=== PATIENT | male | born 1995 | race Two or more races ===

== ENCOUNTER 2018-09-18 15:14 | Observation (INO) | payer OTHER ==
[2018-09-18] MEDS ORDERED: NS 1,000 ML IV ONE ×2 (15:30→15:37)
--- NOTE | 2018-09-18 15:31 | EDPHY ---
H & P Stated Complaint: CP/SOB Time Seen by Provider: 09/18/18 15:31 HPI/ROS: HPI CHIEF COMPLAINT: Vomiting, chest pain, shortness of breath, abdominal pain HISTORY OF PRESENT ILLNESS: Patient is a 23-year-old male, otherwise healthy denies any significant medical history he presents emergency room with vomiting , epigastric abdominal pain, radiating to his chest with shortness of breath numbness and tingling all over. Patient states that he went for 17 mi run today, completed this and then drove home 45 min he did not have any chest pain or shortness of breath during this. He ate a bowl pasta when he got home and then shortly after he started developing pain in his epigastric region radiating to his chest. Associated shortness of breath. With hyperventilation. Nausea vomiting. He arrives to the emergency room is actively vomiting complaining of epigastric pain. Past Medical History: Denies significant medical history Past Surgical History: Denies significant surgical history Social History: Denies daily use of drugs alcohol tobacco. Family History: He is here from [place], in a training camp. ROS REVIEW OF SYSTEMS: 10 Systems were reviewed and negative with the exception of the elements mentioned in the history of present illness. Exam Constitutional triage nursing summary reviewed, vital signs reviewed, awake/ alert. Eyes normal conjunctivae and sclera, EOMI, PERRLA. HENT normal inspection, atraumatic, moist mucus membranes, no epistaxis, neck supple/ no meningismus, no raccoon eyes. Respiratory clear to auscultation bilaterally, normal breath sounds, no respiratory distress, no wheezing. Cardiovascular rate normal, regular rhythm, no murmur, no edema, distal pulses normal. Gastrointestinal soft, non-tender, no rebound, no guarding, normal bowel sounds, no distension, no pulsatile mass. Genitourinary no CVA tenderness. Musculoskeletal no midline vertebral tenderness, full range of motion, no calf swelling, no tenderness of extremities, no meningismus, good pulses, neurovascularly intact. Skin pink, warm, & dry, no rash, skin atraumatic. Neurologic awake, alert and oriented x 3, AAOx3, moves all 4 extremities equally, motor intact, sensory intact, CN II-XII intact, normal cerebellar, normal vision, normal speech. Psychiatric normal mood/affect. Heme/Lymph/Immune no lymphadenopathy. Differential Diagnosis: Differential diagnosis includes but is not limited to: ACS, atypical chest pain, pneumothorax, pneumonia, pulmonary embolism, aortic dissection, congestive heart failure, tumor, musculoskeletal pain, esophageal pain, GERD, peptic ulcer disease, pancreatitis Medical Decision Making: Plan for this patient IV establishment with IV fluid bolus, IV Phenergan for nausea vomiting 6.25 mg, monitor and storage bin tender, EKG, troponin , chest x-ray, electrolytes, lipase, LFTs re-evaluate. Re-evaluation: EKG interpretation by me on record in [facility] system. Impression time of EKG 1528, sinus rhythm rate of 78 prolonged VT interval 244, prolonged QT interval of 469, diffuse subtle ST elevation concerning for pericarditis. This could also be early re-pulp pattern as the patient is very young and very thin. I do not appreciate reciprocal changes of ST depression. Troponin 0.74. Given elevated troponin abnormal EKG I will consult Cardiology. Spoke with Cardiology Dr. Jose M rowland. Dr. Rowland to review the patient's EKG. He would like a echocardiogram, and proceed with CT scan with IV contrast for aortic dissection. Patient has blood pressure equal in both arms. ED x-ray chest one view negative for acute cardiopulmonary disease no evidence of widened mediastinum. No pneumothorax. 1636 patient re-evaluated resting comfortably at this time no acute distress. Dr. Jose M rowland at bedside evaluating the patient. He has reviewed his EKG. Echocardiogram being performed at this time. Given the patient's elevated troponin abnormal EKG will be admitted to the hospital. CT scan of the chest shows no evidence of aortic dissection called to me by Dr. Ramirez Plan for admission the hospital. Admit to Dr. Mena. Critical Care: Total Critical Care Time Spent Managing this Patient: 65 Minutes. This time was spent Exclusively with this patient. This Care was exclusive of procedures. The Organ System/life at risk was cardiac. This Patient was in Critical Condition because Chest pain in the setting of abnormal ekg, elevated troponin, vomiting. Source: Patient - Personal History Current Tetanus/Diphtheria Vaccine: Yes - Medical/Surgical History Hx Asthma: No Hx Chronic Respiratory Disease: No Hx Diabetes: No Hx Cardiac Disease: No Hx Renal Disease: No Hx Cirrhosis: No Hx Alcoholism: No Other PMH: Denies - Social History Smoking Status: Never smoked Constitutional: Initial Vital Signs Temperature (C) 36.9 C 09/18/18 15:16 Heart Rate 76 09/18/18 15:16 Respiratory Rate 18 09/18/18 15:16 Blood Pressure 136/86 H 09/18/18 15:16 O2 Sat (%) 99 09/18/18 15:16 O2 Delivery Mode Room Air Allergies/Adverse Reactions: No Known Allergies Allergy (Verified 09/18/18 16:17) Home Medications: Medication Instructions Recorded NK [No Known Home Meds] 09/18/18 Medical Decision Making - Data Points Laboratory Results: Laboratory Results 09/18/18 15:37 09/18/18 15:37 Medications Given: Discontinued Medications Sodium Chloride (Ns) 1,000 mls @ 0 mls/hr IV EDNOW ONE; Wide Open PRN Reason: Protocol Stop: 09/18/18 15:31 Last Admin: 09/18/18 15:40 Dose: 1,000 mls Sodium Chloride (Ns) 1,000 mls @ 0 mls/hr IV ONCE ONE PRN Reason: Wide Open Stop: 09/18/18 15:38 Last Admin: 09/18/18 16:00 Dose: 1,000 mls Promethazine HCl (Phenergan) 6.25 mg IVP EDNOW ONE Stop: 09/18/18 15:37 Last Admin: 09/18/18 15:38 Dose: 6.25 mg Point of Care Test Results: Chemistry 09/18/18 15:39 POC Troponin I 0.74 ng/mL H ng/mL (0.00-0.08) Departure - Departure Disposition: [facility] Inpatient Acute Clinical Impression: Elevated troponin, Abnormal EKG Chest pain Qualifiers: Chest pain type: unspecified Qualified Code(s): R07.9 - Chest pain, unspecified Vomiting Qualifiers: Vomiting type: unspecified Vomiting Intractability: intractable Nausea presence : with nausea Qualified Code(s): R11.2 - Nausea with vomiting, unspecified Condition: Fair
[2018-09-18] MEDS ORDERED: PROMETHAZINE HCL 25 MG/ML INJ ONE (15:34)
[2018-09-18] MEDS ORDERED: PROMETHAZINE HCL 25 MG/ML INJ IVP ONE (15:36)
[2018-09-18 15:50] LABS: PLATELET COUNT 257 10^3/uL (150-400)
[2018-09-18] MEDS ORDERED: IOPAMIDOL (ISOVUE 370) 100 ML BTL IV ONE (16:06)
[2018-09-18 16:46] LABS: CREATINE KINASE 404 IU/L (0-224)
--- NOTE | 2018-09-18 17:36 | ECHO ---
[email or web address] [address] [address] Main: [phone] Echocardiography Examination Transthoracic Name: SADAF MILLER MR#: [id number] Study Date: 09/18/2018 Study Time: 04:30 PM Date of : 1995 Age: 23 year(s) Height: 173 cm (68.11 in.) Weight: 61 kg (134.48 lb.) BSA: 1.73 m2 Gender: Male Examination: Echo Contrast: Image Quality: Adequate Rhythm: Heart Rate: BP: 134 mmHg/76 mmHg Indication: Chest Pain Procedure Staff Referring Physician: Pipe Joints Supervisor: Reading Physician: Vinayak Rowland MD Requesting Provider: Ordering Physician: Willis Antunez Indication: Chest Pain Measurements Chambers AV/MV Label Value Normal Value Label Value Normal Value LVDd, 2D 5.5 cm (4.2cm - 5.9cm) AV PGmax 7 mmHg LVDs, 2D 3.5 cm (2.1cm - 4cm) AV PGmean 3 mmHg IVSd, 2D 0.6 cm (0.6cm - 1.1cm) AV Vmax 1.35 m/s LVPWd, 2D 0.7 cm (0.6cm - 1cm) MV E Vmax 0.83 m/s LVEF, BP 64 % (55% - 70%) MV A Vmax 0.48 m/s LVEF, 2D 66 % (54% - 74%) MV E/A 1.73 LADs, 2D 3.6 cm (3cm - 4cm) MV E/E' lateral 6.5 Additional Vessels MV E/E' septal 7.7 (0.6 - 2.6) Label Value Normal Value MV E' septal 0.11 m/s AoRoot, MM 3.2 cm (2.2cm - 3.7cm) MV E' lateral 0.13 m/s IVC 2.8 cm (1.2cm - 2.3cm) MV E/E' mean 6.92 MV E' mean 0.12 m/s TV/PV Label Value Normal Value RA Pressure 5 mmHg RVSP 25 mmHg TR Pmax 20 mmHg TR Vmax 2.24 m/s Patient: SADAF MILLER Study Date: 09/18/2018 Page 1 of 2 04:30 PM Conclusions Normal left ventricular size and function. LVEF estimated at 60-65% with normal left ventricular free wall thickness and no regional wall motion abnormalities. No pericardial effusion. Diastolic parameters within normal limits. Mild biatrial enlargement. Intact interatrial septum. Normal appearing valvular structures. Trivial mitral regurgitation. Mild tricuspid regurgitation. Normal estimated RVSP. Normal ascending aortic size. Findings Left Ventricle: Left ventricle is normal in size. Normal global systolic left ventricular function. The ejection fraction, measured by Simpsons method, is 64 %. EF range is estimated at 60 % - 65 %. Left ventricle wall thickness is normal. There are no regional wall motion abnormalities. Left ventricular diastolic function parameters are normal. IVS: The septum is intact. Right Ventricle: Normal size right ventricle. Right ventricular wall thickness is normal. Right ventricular systolic function is normal. Left Atrium: The left atrium is mildly dilated. IAS: Normal appearing atrial septum. Right Atrium: The right atrium is mildly dilated. Mitral Valve: Normal . Trivial mitral regurgitation. No mitral valve stenosis. Aortic Valve: Aortic leaflets exhibit normal cuspal separation. No aortic valve regurgitation. There is no aortic stenosis. The aortic valve is trileaflet. Tricuspid Valve: Tricuspid valve leaflets are normal in appearance and function. Mild tricuspid regurgitation. No tricuspid valve stenosis. Right Ventricular systolic pressure is measured at 25 mmHg. Pulmonary artery pressure normal. Pulmonic Valve: Pulmonic leaflets exhibit normal cuspal separation. No pulmonic valve regurgitation is evident. There is no pulmonic valve stenosis. Aorta: The aorta is normal. The aortic root size in M-mode measures 3.2 cm. Aorta Measurements AoRoot, MM is 3.2 cm. IVC: The inferior vena cava is normal in size and course. Pericardium: No pericardial effusion. No pleural effusion present. Exam Details Procedure Ordered: Echo Procedure Status: Routine study Image Quality: Adequate Facility Location: Cardiac Echo 1 (No Signature Object) Patient: SADAF MILLER Study Date: 09/18/2018 Page 2 of 2 04:30 PM [id number]
[2018-09-18] MEDS ORDERED: ACETAMINOPHEN 325 MG TAB PO PRN (18:44)
[2018-09-18] MEDS ORDERED: ONDANSETRON 4 MG/2 ML VIAL IVP PRN (18:44)
[2018-09-18] MEDS ORDERED: NS 1,000 ML IV SCH (18:45)
[2018-09-18] MEDS ORDERED: PROMETHAZINE HCL 25 MG/ML INJ IVP PRN (18:46)
--- NOTE | 2018-09-18 19:22 | GHP ---
[f rep st] HISTORY AND PHYSICAL DATE OF ADMISSION: 09/18/2018 CHIEF COMPLAINT: Chest pain. 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 He ran 17 miles today. This is not unusual for cadence lagos to run that distance. He has been in [place] for 10 days, had a little bit of altitude awareness the first couple days he was here, but feels fully acclimated and has been running at his usual capac ity. He is here to train at altitude. 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 After his run today, he drove home, cooked a big bowl of spaghetti carbonara, and felt fine. While cadence alcantar was eating the pasta, he suddenly developed a chest pain to lower epigastric pain that was very sev ere 8/10. It radiated to his back. He described as an intense pain feeling like he was winded. He had some numbness and tingling that went all the way down his legs to his arms as well as a back pain that shot up to his head. He felt a little short of breath. Chest pain lasted about 2-1/2 hours. He had some nausea and vomiting. He actually felt better after he vomited. PAST MEDICAL HISTORY: Negative. MEDICATIONS: None. ALLERGIES: No known drug allergies. SOCIAL HISTORY: No smoking. Rare alcohol. He is here in [place] for 3 weeks staying at a training camp with other athletes. REVIEW OF SYSTEMS: Complete review of systems obtained. Review of systems negative regarding consti tutional, HEENT, GI, pulmonary, cardiovascular, , hematology, skin, musculoskeletal, endocrine, psy ch, except for positives and negatives as in HPI. FAMILY HISTORY: There are strokes on his Mom's side of the family. PHYSICAL EXAMINATION: GENERAL: Well-developed, well-nourished male, in no distress. VITAL SIGNS: Temperature 36.7, pulse 59, blood pressure 118/71, saturating 95% on room air. EYES: Normal conjunc tivae, pupils react to light. ENT: Normal ears, nose. Hearing intact. Normal teeth. Oropharynx: Moist. NECK: Trachea midline. No thyromegaly. CHEST: Clear to auscultation bilaterally. CARDIO VASCULAR: Regular rhythm. No murmur. EXTREMITIES: No lower extremity edema. ABDOMEN: Soft, nont patsy. No hepatomegaly. SKIN: Warm, dry, intact. No rash. MUSCULOSKELETAL: No cyanosis or clubb ing. Strength 5/5 upper and lower extremities. NEUROLOGIC: Cranial nerves intact. Normal sensatio n light touch. PSYCHIATRIC: Alert and oriented x3. Normal affect. Normal judgment and insight. No rmal memory. LABORATORY DATA: White count 9.89, hematocrit 40.9, platelets 257. Sodium 138, potassium 4.0, chlor song 105, bicarb 18, BUN 22, creatinine 1.0, glucose 105. Troponin 0.79. Total bilirubin 1.6. CPK i s 404. D-dimer is negative. IMAGING: CT angiogram of the chest is negative. Echocardiogram shows normal EF. Normal wall thickness. This case was discussed with Dr. Herrera. He consulted Dr. Rowland who saw the patient personally in [facility] emergency room. He would like patient admitted for observation and serial troponins. ASSESSMENT/PLAN: 1. Demand ischemia due to extreme exercise. I think it is much less likely that he is having a non- ST-elevation myocardial infarction. His echo is reassuring. We will admit to observation and follow serial troponins. Cardiology is following. Per Dr. Rowland, he doubts pericarditis. CT of the chest was negative. 2. Nausea and vomiting. Will treat symptomatically with IV Zofran and/or IV Phenergan. 3. CPK elevation. This is only mildly elevated and clearly from his intense exercise. I will hydra te him. CODE STATUS: Full. ADMISSION STATUS: Will admit to observation as I anticipate he will be able to go home tomorrow if h is troponins remain flat. DEEP VENOUS THROMBOSIS PROPHYLAXIS: He is low risk. /[id number]/MODL
--- NOTE | 2018-09-19 04:12 | GCON ---
[f rep st] CONSULTATION EMERGENCY DEPARTMENT CONSULTATION DATE OF CONSULTATION: 09/18/2018 INDICATIONS: Chest pain. HISTORY OF PRESENT ILLNESS: The patient is a 23-year-old, otherwise very healthy male who is visitin g the local area here from [place] to train in long-distance running. 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 He typically will run between 60 and 80 miles weekly. He has been in the local area here for about 10 days traveling from [facility]. He has been running every day since then. He is here with his education trainer. Earlier today, went for about a 17 mile run. During his run, he states that he felt a little bit ill . On several occasions. He had to stop because he felt nauseated. Apparently at 1 point, he did do uble over. He did manage to finish his run at which point he felt better. He traveled home, made so me pasta and began to eat. At that point, he states he felt the abrupt onset of epigastric discomfor t. This felt as if someone had "punched" him in the chest and upper abdomen. He felt a little bit o f pain radiating to his back. With this, he became nauseated and apparently started to hyperventilat e. He felt that his symptoms were a little bit worse with deep inspiration. As a result, he was bro ught to the emergency department here. On arrival here, he was having active discomfort. He did end up having at least 1 large episode of emesis. He was treated with Phenergan and had improvement in his symptoms. At the time that I was talking to him, he felt back to his baseline. He has not had any recent fever, chills or sweats. He has not had any previous episodes of chest dis comfort. He notes no palpitations or racing heart rate. He has not had any recent unusual meals. H e notes no diarrhea. On arrival here, he was hemodynamically stable. He had no oxygen requirement. His initial ECG demon strated sinus rhythm with a first-degree AV block measuring 240 milliseconds. He had increased volta ges throughout the precordium as well as tall T-waves. He had no ST elevations. There were no T-wav e inversions. Subsequently, he has had a bedside echocardiogram. There is a full and separately detailed report on the chart. That echocardiogram was essentially normal. There was borderline right ventricular and right atrial dilatation. There was no pericardial effusion or wall motion abnormalities. Additional ly, he underwent a chest CTA. There was no evidence of dissection or pulmonary embolism nor was ther e any indication of pericardial effusion or pulmonary pathology. His point of care troponin here was elevated at 0.74. His N terminal proBNP was 178. CPK was 404 wi th an MB of 8.5 yielding a negative MB fraction. BUN was 22 with a creatinine 1.0. Sodium 138, pota ssium 4.0, chloride 105, CO2 18, anion gap 15, BUN 22, and creatinine 1.0. Glucose was 105. Calcium 10.4. Magnesium 1.9. Liver function tests were normal. Albumin 5.3, total protein 8.4, lipase 122 . D-dimer 0.29. White blood cell count 9.89, hematocrit 40.9, and platelet count 257,000. PAST MEDICAL HISTORY: Otherwise healthy. PAST SURGICAL HISTORY: He has not had any significant surgeries. SOCIAL HISTORY: He drinks very rarely. He uses no tobacco products or drugs. As stated, he is here from [facility] to train in long-distance running. FAMILY HISTORY: Negative for premature atherosclerosis. REVIEW OF SYSTEMS: A full 10-point review of systems was performed and is otherwise negative. PHYSICAL EXAMINATION: VITAL SIGNS: Blood pressure 118/71, pulse is in the 50s, room air saturations are 95%. He is afebrile. GENERAL: Reveals a healthy, appearing male in no acute distre ss. HEENT: Normocephalic atraumatic. He has anicteric sclerae. His oropharynx unremarkable. Lorenzo tids 2+ bilaterally with no bruits. He has no JVD, adenopathy or thyromegaly. RESPIRATORY: He is b reathing easily, resting comfortably, using no accessory muscles. On auscultation, he has clear lung nicole bilaterally. CARDIAC: Precordial inspection unremarkable. PMI is nondisplaced. On auscult ation, he has a regular rate and rhythm without murmurs, gallops, or rubs. ABDOMEN: Soft, nontender . He has no masses or hepatosplenomegaly. He has a nonpalpable aorta. EXTREMITIES: Warm, dry, and well perfused. He has no lower extremity edema. VASCULATURE: Has 2+ radial, dorsal, pedal, and po sterior tibial pulses and a nonpalpable aorta. NEUROLOGIC: He is alert and oriented x3. Moves all 4 limbs spontaneously. IMPRESSION: The patient is 23 years old who and presents to the emergency department today after run john about 17 miles with symptoms of epigastric and chest discomfort associated with nausea and emesi s. His initial point of care troponin was slightly elevated at 0.74 and his ECG was mildly abnormal indicating first-degree atrioventricular block, tall peaked T-waves and increased voltages. At the p resent time, there is no indication of an acute coronary syndrome. He does not have ECG changes that suggest infarction or ischemia, and his echocardiogram demonstrates normal homogeneous contractility of all cardiac segments. His nausea and chest discomfort have subsequently resolved. He does, alston marino, have a slight elevation in his troponin. I think this may very well reflect the fact that he re cently ran 17 miles. I think this may simply represent right ventricular strain which is typically s een in individuals that run marathons. Other possibilities on the differential diagnosis includes pe ricarditis which I think is unlikely. Based on his workup thus far, there is no evidence of dissecti on nor is there any evidence of pulmonary embolism. Fortunately, his pain is resolved after administ ration of Phenergan and he is currently comfortable. RECOMMENDATIONS: 1. I would like him to be admitted to the hospital overnight. 2. I think he can be orally hydrated throughout the evening. 3. I would like to trend his cardiac enzymes throughout the night. 4. We will plan to repeat his ECG in the morning. 5. Depending on his clinical course overnight, I think he can likely be discharged home in the [facility]. We may consider performing a coronary CTA to assess for anomalous coronary arteries. 6. We will follow along with you. /[id number]/MODL
--- NOTE | 2018-09-19 08:32 | CPEKG ---
Test Reason : OPEN Blood Pressure : / mmHG Vent. Rate : 078 BPM Atrial Rate : 077 BPM P-R Int : 244 ms QRS Dur : 100 ms QT Int : 469 ms P-R-T Axes : -13 039 059 degrees QTc Int : 535 ms Sinus rhythm FRIST DEGREE AV BLOCK Prolonged QT interval Confirmed by Nico Patel ([id number]) on 09/19/2018 8:32:23 AM Referred By: Dede Mena Confirmed By:Nico Patel
[2018-09-19] MEDS ORDERED: IOPAMIDOL (ISOVUE 370) 100 ML BTL IV ONE (09:40)
[2018-09-19 11:46] VITALS: BP 123/66
--- NOTE | 2018-09-19 14:25 | ASMTCMCOM ---
CM Note CM Note Notes: Pts case discussed in tx rounds. Pt is a 23 y/o man admitted for chest pain and positive trops. Pt will most likely d/c independent when medically stable. Pt is currently listed under self pay. Financial counseling stopped by to see pt. FC will defer to [facility] if it is warranted. CM available for changes. Plan: Independent Date Signed: 09/19/2018 02:25 PM Electronically Signed By:KARENA Gottlieb
--- NOTE | 2018-09-19 14:36 | PDCARPN ---
Cardiology Progress Note Assessment/Plan: Assessment: 1. Epigastric discomfort (resolved) 2. Mild troponin elevation (trending down) I think Mr. Krueger's symptoms are due to GI discomfort after running 17 miles and eating a banana, power bar and pasta. [place] and arrived in [place] September 10, 2018. I think symptoms exacerbated by the altitude as well. Cardiac work up has been unremarkable as outlined above. Plan: -stable for discharge today -recommend adequate hydration -OK to run gradually tomorrow if he feels OK -Discussed potential for arrhythmias in athletes, particularly in the setting of atrial enalargement. 09/19/18 14:36 Subjective: Mr. Krueger is feeling well. No complaints of chest pain. No sob, nausea or vomiting. Tele demonstrates normal sinus rhythm with occasional PAC. Echo from yesterday demonstrates normal left and right ventricular function. Mild left/ right atrial dimensions. Coronary CTA today demonstrated normal coronary arteries with normal anatomic origins. No coronary calcium and no evidence of CAD. Normal LV function. Troponin continues to trend down from 0.98 to 0.59 to 0.322. BP is normal. Reviewed/Discussed With: hospitalist Objective: Vital Signs (8 Hrs) Temp Pulse Resp BP Pulse Ox 09/19/18 11:46 36.6 C 51 L 18 123/66 H 95 09/19/18 07:35 36.8 C 38 L 18 106/50 L 96 Intake/Output (24 Hrs) 09/18/18 09/19/18 09/20/18 05:59 05:59 05:59 Intake Total 500 Balance 500 Intake: Oral (ml) 500 Other: Weight 61 kg Number of Voids Toilet 1 Result Diagrams: 09/18/18 15:37 09/19/18 03:00 Cardiac Labs: Cardiac Lab Results (72 Hrs) 09/19/18 09/18/18 09/18/18 03:00 22:05 19:18 Troponin I 0.322 H 0.590 H 0.980 H - Physical Exam Constitutional: healthy appearing Neurologic: AAOx3, CN II-XII grossly intact Psychiatric: cooperative, interactive, following commands ICD10 Worksheet Patient Problems: Problems Problem Status Onset Abnormal EKG Acute Chest pain Acute Elevated troponin Acute Vomiting Acute
--- NOTE | 2018-09-19 14:56 | PDDCSUM ---
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 This is his 1st time training at altitude in [place]. Yesterday he ran 17 miles which is a typical distance for him during his training. This went fine without any symptoms. Afterward while he was eating dinner he developed sudden onset of severe epigastric cramps also felt in the mid back and the very low substernal area. There is nausea and vomiting. There were no palpitations, no lightheadedness, no fainting, no fever symptoms, no diarrhea. He presented here to the ER. His symptoms have completely resolved at this time spontaneously. On initial evaluation in the ER he had normal vital signs without fever or hypoxemia. EKG shows high voltages consistent with athletic heart. He has no signs of arrhythmia or heart failure or murmurs on examination. Chest x-ray unremarkable. His initial lab tests showed a metabolic acidosis with a CO2 of 18 and anion gap of 15 a minimal elevation of bilirubin at 1.6, a CPK of 404 with negative MB fraction, and mild troponin elevation at 0.7. Echocardiogram shows no evidence of cardiomyopathy or valvular abnormalities. There is biatrial enlargement which is mild. He also underwent coronary CT angiography and this is showing normal coronary arteries and no other concerning abnormalities. In retrospect the patient symptoms are felt to most likely be due to gastrointestinal perfusion abnormality due to running at high altitude and likely dehydrated. He is not felt to have an acute coronary or cardiac syndrome. He is not felt to be at significant risk of acute cardiac complications, and it is felt safe for him to return to his training. Due to yesterday's episode where recommending that he take measures to keep very well hydrated while here particularly while training, and to take today and tomorrow with shorter and slower runs that he would typically do and proceed 2 days from now back to his usual training regimen if all is going well. He understands that in the long run he has slightly higher risk of developing atrial fibrillation with biatrial enlargement. PENDING TEST RESULTS: None MEDICATION CHANGES: None FOLLOW-UP PLAN: He may return to ER here if necessary for any recurrent or other symptoms or problems Greater than 35 minutes bedside and care coordination time today
--- NOTE | 2018-09-19 16:20 | CPEKG ---
Test Reason : OPEN Blood Pressure : / mmHG Vent. Rate : 041 BPM Atrial Rate : 000 BPM P-R Int : 221 ms QRS Dur : 097 ms QT Int : 575 ms P-R-T Axes : 053 045 055 degrees QTc Int : 475 ms Sinus bradycardia Prolonged [place] interval Tall T waves, probably normal variant vs metabolic abnormality Borderline prolonged QT interval Compared with 09/18/2018 QT interval slightly shorter Confirmed by Gi Mcnally ([id number] on 09/19/2018 4:19:14 PM Referred By: Dede Mena Confirmed By:Gi Mcnally
== END 2018-09-19 16:09 | disposition home or self-care (01) ==
LOC: EDBD 15:14 → F2W 17:10
PROVIDERS: ADMIT Internal Medicine; ATTEND Internal Medicine
DX: R10.13 Epigastric pain (principal); I24.8 Other forms of acute ischemic heart disease; E86.9 Volume depletion, unspecified; R11.2 Nausea with vomiting, unspecified
CPT/HCPCS: 71045; 71275; 75574; 93005; 93306; 96360; 99291; G0378; 84484-ER; J2550; Q9967